=== PATIENT | male | born 1970 ===

== ENCOUNTER 2025-10-27 21:14 | Emergency (ER) | payer OTHER, BC | END 2025-10-27 22:35 | disposition home or self-care (01) | LOC: MW.ED 21:14 | DX: S00.83XA Contusion of other part of head, initial encounter (principal); I10 Essential (primary) hypertension; E78.00 Pure hypercholesterolemia, unspecified; E11.9 Type 2 diabetes mellitus without complications; Z79.899 Other long term (current) drug therapy; M25.511 Pain in right shoulder; W01.0XXA Fall on same level from slipping, tripping and stumbling without subsequent striking against object, initial encounter; Y93.89 Activity, other specified | CPT/HCPCS: 70450; 70486; 72125; 73030; 99284; A9270 ==